=== PATIENT | male | born 1990 ===

== ENCOUNTER 2021-08-04 10:18 | Emergency (ER) | payer SELFPAY ==
[2021-08-04 10:22] VITALS: BP 124/74; PULSE 111; RESP 16; TEMP 36.9; O2SAT 100
--- NOTE | 2021-08-04 10:38 | PC.NURSE ---
pt states he is leaving to go to a less busier ER. Pt left in no distress, gait steady
== END 2021-08-04 10:35 | disposition left against medical advice (07) ==
LOC: ANHED 10:41
DX: R11.2 Nausea with vomiting, unspecified (principal)
CPT/HCPCS: 99199